=== PATIENT | male | born 1980 | race Caucasian/White ===

== ENCOUNTER 2018-11-09 10:15 | Emergency (ER) | payer MEDICAID ==
--- NOTE | 2018-11-09 10:17 | EDPHY ---
General Time Seen by Provider: 11/09/18 10:16 Narrative: CLINICAL IMPRESSION: Reported Suicidal ideation, behavioral health evaluation ASSESSMENT/PLAN: Patient is a 37-year-old male with a significant history of MS on no medications who presents after being placed on an M1 hold by police with concerns of suicidal ideation. Patient is afebrile and nontoxic-appearing, he is in no acute distress. Physical examination is unremarkable, he denies any physical complaints to me as well as any intent or history of suicidal ideation. CBC revealed no evidence of leukocytosis or anemia. His vital signs were reviewed and no findings to suggest bacterial illness. Metabolic panel with no metabolic abnormalities or acute kidney injury. Alcohol negative. Drug screen negative. There were no clinical findings to suggest intoxication, organic etiology, metabolic abnormality or other toxidrome. The patient was formally evaluated by behavioral health in the emergency department. After formal evaluation, the patient was able to contract for safety with a plan for follow-up next week with [facility]. On repeat exam the patient is well appearing with no complaints and is comfortable with plan, he does not feel in imminent danger to self or others. Return precautions discussed- he will return for recurrent SI , HI, increased or uncontrolled behaviors or for any other concerning symptom. Patient verbalizes understanding and is in agreement with plan. DIFFERENTIAL DX: Differential diagnosis including but not limited to psychosis, medication noncompliance, medication side effect, depression and illicit drug use. ED COURSE: 1027: M1 hold initiate order in place. 1329: Patient formally evaluated by mental health, does not meet criteria for admission. Patient was able to contract for safety. Will plan on discharge. CHIEF COMPLAINT: Suicidal ideation HPI: Patient is a 37-year-old male who is brought in by police on an M1 hold. Per police, a missing person report was filed 3 days prior on the 06 of November, the police have been paining his phone trying to track his location. Police report that last night he contacted both his dad and an ex girlfriend of 3 years prior and express plans to attempt suicide by jumping off of a andrew next week. Per police both father and ex-girlfriend confirmed same story of traveling to [place] and jumping off a andrew to commit suicide. They were unable to identify his location until today where patient was found by police and a residence that he is temporarily renting a room from. Upon contact, patient reportedly denied any suicidal ideation. Police discussed this case with patient's ex-girlfriend who is reportedly a psychiatrist and states that patient has possible undiagnosed psychiatric disorder. On my examination the patient states that he is not sure exactly why he is here. He denies any suicidal or homicidal ideation. He denies any recent illness or trauma. PMH: Multiple sclerosis Family History: Not contributory Social History: Denies alcohol, illicit drug use or cigarette smoking. 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 REVIEW OF SYSTEMS: All other systems negative Constitutional: No fever, no chills, appetite change. Eyes: No discharge, vision change ENT: No sore throat, congestion, ear pain. Cardiovascular: No chest pain, no palpitations. Respiratory: No cough, no shortness of breath. Gastrointestinal: No abdominal pain, no vomiting, diarrhea. Genitourinary: No hematuria, dysuria, flank pain, pelvic pain Musculoskeletal: No back pain, joint swelling, joint pain, myalgias. Skin: No rashes, color change. Neurological: No headache, dizziness, weakness. PHYSICAL EXAM: General Appearance: Alert, oriented, appropriate, cooperative, NAD, well hydrated, non-toxic appearing, VSS, no hypoxia. HENT: Normocephalic, atraumatic. Bilateral external ears are normal. Bilateral tympanic membranes are normal with pearly lakhani reflex. Nares are clear, mucosa is pink. Oropharynx is clear, uvula is midline. There is no tonsillar enlargement or exudate. The dentition is normal. Eyes: PERRLA, no acute vision change, nystagmus, swelling, discharge, pain or photosensitivity. Conjunctiva pink, no pallor or injection Neck: Supple, nontender, no lymphadenopathy, no midline pain, FROM, no meningismus. Respiratory: There are no retractions, lungs are clear to auscultation. Cardiac: Regular rate and rhythm, no murmurs or gallops. Gastrointestinal: Abdomen is soft, nontender, bowel sounds normal, no masses/ hernia, no rigidity, guarding or focal peritoneal findings. Neurological: Alert and oriented x 3, CN 2-12 grossly intact, normal gait no ataxia, DTR's intact, normal sensation and strength Skin: Warm, dry, no rashes, no nodules on palpation. Musculoskeletal: Extremities are symmetrical, full range of motion, no tenderness, deformity, swelling, or erythema. Psychiatric: Patient is oriented X 3, patient is labile, there is no agitation. MEDICAL DECISION MAKING: Patient was seen independently. Secondary supervising physician at time of evaluation was Dr. Bermudez, he did not evaluate this patient however we discussed case and plan of care. Diagnosis: Suicidal ideation. New, requires workup Summary: See Assessment and Plan for summary of ED visit Clinical lab tests: ordered / reviewed. Independent visualization of images, tracing, or specimens: Yes. Decision to obtain medical records or history from someone other than the patient: Yes, police Review / Summarize previous medical records: None available Discussed patient with another provider: Yes, Dr. Bermudez Patient Progress: Stable, discharge. - Objective Vital Signs: Initial Vital Signs Temperature (C) 36.3 C 11/09/18 10:23 Heart Rate 97 11/09/18 10:23 Respiratory Rate 16 11/09/18 10:23 Blood Pressure 138/84 H 11/09/18 10:23 O2 Sat (%) 95 11/09/18 10:23 O2 Delivery Mode Room Air Allergies/Adverse Reactions: Unable to Assess Allergy (Unverified 11/09/18 10:23) Home Medications: Medication Instructions Recorded NK [No Known Home Meds] 11/09/18 Laboratory Results: Laboratory Results 11/09/18 10:33 11/09/18 10:33 11/09/18 11/09/18 11/09/18 10:33 10:33 10:33 WBC 5.34 10^3/uL 10^3/uL (3.80-9.50) RBC 5.62 10^6/uL 10^6/uL (4.40-6.38) Hgb 16.5 g/dL g/dL (13.7-17.5) Hct 50.1 % % (40.0-51.0) MCV 89.1 fL fL (81.5-99.8) MCH 29.4 pg pg (27.9-34.1) MCHC 32.9 g/dL g/dL (32.4-36.7) RDW 11.8 % % (11.5-15.2) Plt Count 201 10^3/uL 10^3/uL (150-400) MPV 11.7 fL fL (8.7-11.7) Neut % (Auto) 62.6 % % (39.3-74.2) Lymph % (Auto) 29.0 % % (15.0-45.0) [place] % (Auto) 6.7 % % (4.5-13.0) Eos % (Auto) 1.1 % % (0.6-7.6) Baso % (Auto) 0.4 % % (0.3-1.7) Nucleat RBC Rel Count 0.0 % % (0.0-0.2) Absolute Neuts (auto) 3.34 10^3/uL 10^3/uL (1.70-6.50) Absolute Lymphs (auto) 1.55 10^3/uL 10^3/uL (1.00-3.00) Absolute Monos (auto) 0.36 10^3/uL 10^3/uL (0.30-0.80) Absolute Eos (auto) 0.06 10^3/uL 10^3/uL (0.03-0.40) Absolute Basos (auto) 0.02 10^3/uL 10^3/uL (0.02-0.10) Absolute Nucleated RBC 0.00 10^3/uL 10^3/uL (0-0.01) Immature Gran % 0.2 % % (0.0-1.1) Immature Gran # 0.01 10^3/uL 10^3/uL (0.00-0.10) Sodium 140 mEq/L mEq/L (135-145) Potassium 4.2 mEq/L mEq/L (3.5-5.2) Chloride 103 mEq/L mEq/L (97-110) Carbon Dioxide 25 mEq/l mEq/l (22-31) Anion Gap 12 mEq/L mEq/L (6-14) BUN 10 mg/dL mg/dL (7-23) Creatinine 0.9 mg/dL mg/dL (0.7-1.3) Estimated GFR > 60 Glucose 98 mg/dL mg/dL (70-100) Calcium 9.7 mg/dL mg/dL (8.5-10.4) Urine Opiates Screen NEGATIVE (NEGATIVE) Urine Barbiturates NEGATIVE (NEGATIVE) Ur Phencyclidine Scrn NEGATIVE (NEGATIVE) Ur Amphetamine Screen NEGATIVE (NEGATIVE) U Benzodiazepines Scrn NEGATIVE (NEGATIVE) Urine Cocaine Screen NEGATIVE (NEGATIVE) U Marijuana (THC) Screen NEGATIVE (NEGATIVE) Ethyl Alcohol < 10 mg/dL mg/dL (0-10) Departure - Departure Disposition: Home, Routine, Self-Care Clinical Impression: Encounter for behavioral health screening, Suicidal thoughts Condition: Good Instructions: [facility] Additional Instructions: DISCHARGE INSTRUCTIONS FROM YOUR DOCTOR Thank you for visiting our emergency department today. Please keep in mind that discharge from the emergency department does not mean that there is nothing wrong - it simply means that we have not identified an emergency condition that requires further evaluation or treatment in the hospital. You should always plan to follow up with primary care for re-evaluation of your condition in the next 2-3 days. You were seen and evaluated in the emergency department. Please utilize the resources given by [facility]. It is very important that you establish care with a primary care physician, I have given you a referral. Return to the emergency department should you have any thoughts of suicide, wanting to hurt others, fever, headache or for any other concerning symptom. People present with illnesses and injuries in different ways, and it is always possible that we have missed something. You may always return for re-evaluation if symptoms worsen or if they are not improving or if you develop new/different symptoms. Again, thank you for choosing our emergency department. We hope that you feel better. Referrals: Irasema Bojorquez MD [Medical Doctor] - As per Instructions (Please establish care with a primary care provider.)
[2018-11-09 11:01] LABS: PLATELET COUNT 201 10^3/uL (150-400)
[2018-11-09 13:41] VITALS: BP 118/78
--- NOTE | 2018-11-09 14:40 | ASMTTLCEVL ---
[facility] Evaluation - Basic Information Evaluation Start Date and 11/09/2018 12:00 PM Time Hospital Status Answers: M1 Hold 72-hr M1 Hold Start Date 11/09/2018 09:51 AM and Time Patient statement Notes: Im not suicidal. 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 No, Im not a licensed counselor. My mom freaked out just because I hadn't returned her text messages for the past few days. 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 Upon officer contacting respondent, he told officer he was not going to kill himself, he was just going to exit the world. When officer asked about his welfare, he responded what is welfare and who are we to decide how it is. BAL was zero. UDS results were negative for all tested substances. Upon medical clearance, MH evaluation commenced. Pt declined to complete BDI/BSS questionnaires and stated, the human being has a broader range of emotions beyond what the limited options are on the questionnaires, referring to the limited, forced option responses available on the questionnaires. Pt appeared somewhat unclean, unkempt with several day hernandez growth. He appeared suspicious with peculiar ideas of reference i.e. believing that he is a counselor despite no formal training or credentials, seemed to have odd beliefs, he appeared guarded and had odd thinking and speech. His affect appeared constricted and his behavior seemed odd, peculiar and eccentric. Pt denied having current suicidal ideation/intent/plans to kill himself and stated ability to ensure his own safety/welfare. Pt denied having any homicidal ideation/intent/plans to harm anybody. He denied endorsing any perceptual disturbances, hallucinations or delusions. Diagnosis History Notes: No reported formal history of psychiatric diagnosis/treatment history. Prior suicide attempts Notes: Pt denied any past history of suicide attempts. Prior hospitalizations Notes: Pt denied any past history of psychiatric hospitalizations. Treatment Responses Notes: N/A. History of violence Notes: Pt denied having any homicidal ideation/intent/plans to harm anybody. Therapist: None. Psychiatrist: None. Medications (name, dosage, route, freq uency) Notes: None. Allergies/Reaction Notes: Penicillin rash. Sleep Notes: WNL. Appetite Notes: WNL. Medical/Surgical history Notes: Pt reported having surgical repair of hernia in 2010 at [facility]. Mother reported that pt was diagnosed 2 years ago with MS, which pt did not report. Substance use history (frequency, intensity, his tory, duration) Notes: Pt reported having first tried alcohol and marijuana around age 19. Pt denied having any alcohol consumption in the past 10 years. He reported he last used marijuana about 3 years ago. Pt otherwise denied any other history of use of any other illicit substances. BAL was zero. UDS results were negative for all tested substances. Family composition Notes: Pt reported that his parents when pt was 11. He reported having a brother, age 41, and two step-brothers, ages 36 and 33, who live in [place]. His parents also both live in [place]. Need for family Answers: No participation in patient's care Family psychiatric/substance abuse history Notes: Pt denied awareness of any family history of mental illness or substance abuse. Developmental history Notes: Pt reported he was born and grew up in [place], [place] until age 17 when he went to college. Pt denied any childhood history of TBIs, did report and incident around age 17 in which he was knocked out while snowboarding in [place]. Pt denied any childhood history of physical, emotional or sexual abuse/trauma. Abuse concerns Answers: None Marital status/children Notes: Pt is single, never , no dependents, not involved in a romantic relationship. Living situation Notes: Pt reported that he lives in an apartment with two female roommates. Sexual history/orientation Notes: Heterosexual. Not active. Peer support/family strengths Notes: Pt stated, I have several friends, but questioned what was meant when asked who do you consider are your supports outside the hospital? Education level/history Notes: Pt reported beginning college at then transferred to [employer] and obtained a bachelors degree in graphic design in [phone]. Work history Notes: Pt reported that he works self-employed in [employer] and added thats like psychology/counseling. Notes: None. Legal Notes: Pt reported being arrested in 2010 for wreckless driving. Baptist/Spiritual Notes: Pt reported having his own spiritual ideology. 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 Collateral Notes: Mother, Teresa Robison [phone] Patient's strengths Answers: Artistic/Creative/Musical (Please select at least TWO strengths): Supportive Family [facility] Evaluation - Mental Status Exam Appearance: Answers: Unclean Unkempt Eye Contact: Answers: Good/Direct Affect: Answers: Apprehensive Blunted Calm Constricted Behavior: Answers: Cooperative Guarded Speech: Answers: Relevant Logical Clear Coherent Thought Process: Answers: Organized Oriented Alert Goal Oriented Intact Loose Associations Insight: Answers: Poor Judgement: Answers: Fair Depression Answers: Flat Affect Signs/Symptoms: Hallucinations: Answers: None Delusions: Answers: Ideas of Reference Current Stage of Change Answers: Precontemplation Pt reported to have Answers: No suicidal/self-injuring ideation/behavior? Pt reported to be making Answers: No suicidal/self-injuring threats? Pt reported to have Answers: No aggression/assault ideation/behavior? Pt reported to be making Answers: No aggression/assault threats? Pt exhibits inability to Answers: No care for self/grave disability? Ideation/behavior is Answers: No chronic? Patient has a specific Answers: No plan? Pt has access to means to Answers: No execute the plan? Ideation involves Answers: No serious/lethal intent? Ideation has Answers: No delusional/hallucinatory content? History of Answers: No suicidal/self-injuring ideation, behavior, or threats? History of Answers: No aggressive/assaultive ideation, behavior, or threats? History of serious Answers: No physical harm to self/others while in treatment setting? [facility] Evaluation - Suicide/Homicide Risk Suicide Risk Factors: Answers: Flat Affect Serious Health Issue, Multiple Sclerosis Single Homicide/violence risk Answers: None factors: Current Suicidal Answers: No Ideation? Current Suicidal Ideation Answers: No in the Past 48 Hours? Current Suicidal Ideation Answers: No in the Past Month? Current Suicidal Answers: No Ideation, Worst Ever? Suicide Internal Answers: Absence of Psychosis Protective Factors: Erick with Stress Suicide External Answers: None Protective Factors: Ranking of patient's Answers: Low suicidal risk: Ranking of patient's Answers: Low homicidal risk: TLC Evaluation - Wrap-up AXIS I Diagnosis (include DSM-V and ICD-10 codes), must also be entered in [employer], which is the source of truth. Notes: Deferred 799.91 (Z71.1) Schizotypal Personality Disorder 301.22 (F21) (Z71.1) In consultation with [facility] ED physician, Jose Bermudez MD, Dr. Bermudez concurred that pt does not appear to meet 27-65 criteria requiring psychiatric hospitalization as pt does not appear to be an imminent risk of harm to self/others/gravely disabled due to a mental illness condition. Dr. Bermudez provided verbal order read back vacating M1 hold at 1330 hrs. Evaluation End Date and 11/09/2018 02:40 PM Time (HH:MM): Date Signed: 11/09/2018 02:39 PM Electronically Signed By:Melo Chicas
--- NOTE | 2018-11-09 14:41 | ASMTTCLDSP ---
TLC Discharge Disposition Disposition: Answers: Discharge If Answers: Yes DISCHARGED: Patient/family given suicide hotline info & SAM[facility] brochure? Disposition Notes: Notes: Pt stated commitment or ability to keep self safe, denied thoughts of self harm or harm to others. Pt was given local hotline information and SAMH[employer] brochure After an Attempt and discharged. Discharge Concerns/Recommendations: Notes: In consultation with [facility] ED physician, Jose Bermudez MD, Dr. Bermudez concurred that pt does not appear to meet 27-65 criteria requiring psychiatric hospitalization as pt does not appear to be an imminent risk of harm to self/others/gravely disabled due to a mental illness condition. Dr. Bermudez provided verbal order read back vacating M1 hold at 1330 hrs. Was patient given the Answers: Not applicable Inpatient Behavioral Health Prohibited Belongings List while in the ED? Psychiatrist vacating M1 Jose Bermudez MD Hold: Date and time M1 hold 11/09/2018 01:30 PM vacated (time format is hh:mm): Type of Hold: Answers: M1/72-hour Hold Hold initiated by: Answers: Police Date Signed: 11/09/2018 02:40 PM Electronically Signed By:Melo Chicas
== END 2018-11-09 13:45 | disposition home or self-care (01) ==
DX: Z04.6 Encounter for general psychiatric examination, requested by authority (principal); R45.851 Suicidal ideations
CPT/HCPCS: 80305; G0480